=== PATIENT | female | born 1975 ===

== ENCOUNTER 2016-07-17 20:01 | Emergency (ER) | payer OTHER ==
[~2016-07-17] VITALS: Ht 170.2 cm; Wt 57.0 kg
[2016-07-17 20:02] VITALS: BP 134/78; PULSE 57; RESP 16; TEMP 98.1; O2SAT 97
--- NOTE | 2016-07-17 21:10 | RADRPT ---
EXAM DATE/TIME: 07/17/2016 20:24 [place] COMPARISON: No previous studies available for comparison. INDICATIONS : Chest Pain. MEDICAL HISTORY : None. SURGICAL HISTORY : None. ENCOUNTER: Initial ACUITY: 1 day PAIN SCORE: 9/10 LOCATION: Bilateral chest FINDINGS: The lungs are clear without infiltrate, nodule, or mass. There is no appreciable pleural effusion fo r technique. Heart and mediastinum are unremarkable. CONCLUSION: No acute cardiopulmonary disease. Marija Barger MD on July 17, 2016 at 21:09 Board Certified Radiologist. This report was verified electronically.
--- NOTE | 2016-07-18 23:18 | EKG ---
Date Performed: 07/17/2016 Time Performed: 20:31:57 PTAGE: 40 years EKG: SINUS BRADYCARDIA BORDERLINE ECG NO PREVIOUS TRACING DOCTOR: Leland Ash Interpretating Date/Time 07/18/2016 23:14:49
== END 2016-07-17 22:51 | disposition left against medical advice (07) ==
LOC: NETRI 20:01
DX: R07.9 Chest pain, unspecified (principal); R00.1 Bradycardia, unspecified
CPT/HCPCS: 71010; 93005; 99281